=== PATIENT | female | born 1950 | race Caucasian/White ===

== ENCOUNTER 2017-11-06 11:51 | Day surgery (SDC) | payer OTHER, SELFPAY ==
--- NOTE | 2017-11-06 | PATH_ITS ---
[facility] Accession Number: [id number] . 01 Material submitted: . SIGMOID POLYP . 02 Diagnosis: Sigmoid Colon, Polyp, Biopsy: Colonic mucosa with no diagnostic abnormality, consistent with polypoid redundancy. Negative for dysplasia or malignancy. Additional levels were examined. MRV/11/08/2017 . 02 Electronically signed: . Jenae Palma MD, Pathologist NPI- [id number] . 01 Gross description: . Received one formalin-filled container labeled with the patient's name and labeled sigmoid polyp. The specimen consists of an extremely tiny less than 0.1 cm portion of tissue, wrapped and entirely submitted in one cassette. ([id number]) /FRR . 02 Pathologist provided ICD-10: K63.5 . 02 CPT . 088237 Performed at: 01 [facility] [address] [id number] MD Erich Massey MD Phone: [phone] Performed at: 02 [facility] [address] [place], [place] [id number] MD Ermias Bundy MD Phone: [phone]
[2017-11-06 12:24] VITALS: BP 129/72; PULSE 56; RESP 16; TEMP 36.3; O2SAT 100; BMI 23.0
[2017-11-06] MEDS: SODIUM CHLORIDE 0.9% 1,000 ML 42 ML IV (12:32)
[2017-11-06] MEDS: ONDANSETRON 4 MG/2 ML INJ IV (13:48)
[2017-11-06] MEDS: fentaNYL 250 MCG/5 ML INJ IV (14:01)
[2017-11-06] MEDS: MIDAZOLAM 5 MG/5 ML VIAL IV (14:02)
--- NOTE | 2017-11-06 14:07 | PM.OP.ENDO ---
Operative Date/Time/Diagnoses Date of procedure: 11/06/17 Time of procedure: 14:07 Pre-op diagnosis: See indication and findings Post-op diagnosis: same Procedure & Clinicians Study performed: Colonoscopy Same procedure as scheduled: Yes Indications: History of polyps Surgeon: Aria Fitch Procedure Notes Procedure in detail: After informed consent was obtained the patient was placed in the left lateral decubitus position. The video colonoscope was introduced the rectum slowly advanced to the cecum. On slow withdrawal mucosa was carefully examined. Scope was removed patient tolerated procedure well. Preparation was good. Of note is that the sigmoid is very tortuous and floppy. New line Blood loss none Complications plan Sedation Fentanyl 100 mcg Versed 4 mg IV titration Total sedation time 22 min Findings 1. 3 mm polyp in the sigmoid colon Jumbo biopsy removed completely 2. Very tortuous sigmoid colon 3. Otherwise negative colonoscopy to cecum Given her past history of polyps should have follow-up colonoscopy in 5 years. We will send results of her biopsies to her by mail.
[2017-11-06 14:10] VITALS: BP 109/56; PULSE 52; RESP 16; TEMP 37; O2SAT 97
[2017-11-06 14:15] VITALS: BP 114/57; PULSE 53; RESP 12; O2SAT 96
[2017-11-06 14:21] VITALS: BP 111/59; PULSE 56; RESP 14; TEMP 36.6; O2SAT 966
--- NOTE | 2017-11-06 14:24 | SUR.PHASEI ---
STABLE PACU TO OPD.
[2017-11-06 14:35] VITALS: BP 122/55; PULSE 52; RESP 16; TEMP 36.7; O2SAT 99
--- NOTE | 2017-11-06 14:41 | SUR.PHASEII ---
BROUGHT IN, D/C INSTRUCTIONS DISCUSSED, PT READY TO GO, DRESSED AND LEFT IN STABLE CONDITION.
--- NOTE | 2017-12-11 16:36 | PM.HP.1 ---
History of Present Illness Date Patient Seen: 11/06/17 Time Patient Seen: 08:36 Chief complaint: [id number] COLONOSCOPY Narrative: Positive fit test Patient History Medical History Hypercholesterolemia (Acute) Hyperparathyroidism (Acute) Family & Social History Social History: household members spouse Meds Home Medications Medication Instructions Recorded Confirmed Type estradiol 1 mg PO DAILY 11/06/17 11/06/17 History Allergies Allergy/AdvReac Type Severity Reaction Status Date / Time No Known Drug Allergies Allergy Verified 11/06/17 12:10 Exam Vital Signs (past 8 hours): Oxygen Delivery Method Room Air Narrative Exam Narrative: Oropharynx free of lesion Chest clear to auscultation percussion Cardiac exam reveals no S3 or murmur Assessment & Plan Plan: Assessment/Plan Narrative: Positive fit test need for follow-up colonoscopy. Risks, benefits, alternatives have been explained.
== END 2017-11-06 14:41 | disposition home or self-care (01) ==
PROVIDERS: Family Provider Family Medicine; PCP Family Medicine; Visit Provider Internal Medicine Gastroenterology
PROC: 0DJD8ZZ Inspection of Lower Intestinal Tract, Via Natural or Artificial Opening Endoscopic (ICD-10-PCS; CPT 45378; principal; 2017-11-06 13:00)
DX: Z86.010 Personal history of colon polyps (principal); D12.5 Benign neoplasm of sigmoid colon
CPT/HCPCS: 45380; J2250; J2405; J3010

== ENCOUNTER → 2017-12-02 12:58 | Outpatient (CLI) | payer OTHER, SELFPAY ==
--- NOTE | 2017-12-02 | DI.RAD.S_ITS ---
This blank DEXA report has been sent in error by the PACS system. The correct and complete report will be forthcoming in 1-2 days. Thank you for your patience and understanding. Dictated by: Jeancarlos King M.D. on 12/02/2017 at 15:07 Approved by: Jeancarlos King M.D. on 12/02/2017 at 15:07
== END ==
PROVIDERS: Family Provider Family Medicine; PCP Family Medicine; Visit Provider Family Medicine
DX: M85.832 Other specified disorders of bone density and structure, left forearm (principal); Z78.0 Asymptomatic menopausal state; E21.3 Hyperparathyroidism, unspecified; Z90.722 Acquired absence of ovaries, bilateral
CPT/HCPCS: 77080

== ENCOUNTER → 2017-12-27 10:27 | Outpatient (CLI) | payer OTHER, SELFPAY ==
--- NOTE | 2017-12-27 | DI.NM.S_ITS ---
PROCEDURE: NM PARATHYROID SPECT RADIOPHARMACEUTICAL: 26.0 mCi Tc-99m sestamibi IV. INDICATIONS: HYPERPARATHYROIDISM TECHNIQUE: After intravenous administration of Tc-99m sestamibi, anterior planar images of the neck and mediastinum were obtained at approximately 10 minutes and 2-3 hours. SPECT images were acquired after the 10 minute planar images. COMPARISON: None. FINDINGS: On the early images, the thyroid gland is bilobed and has normal size and morphology. There is focal increased activity just below the right thyroid bed. The delayed images show preferential tracer retention below the inferior pole of the right thyroid bed, suggesting a parathyroid adenoma. The SPECT images demonstrate focal increased activity below the inferior pole of the right thyroid lobe. IMPRESSION: Suspected a parathyroid adenoma just below the inferior pole of the right thyroid lobe. Dictated by: Michaela Bardales M.D. on 12/27/2017 at 15:12 Approved by: Michaela Bardales M.D. on 12/27/2017 at 15:16
== END ==
PROVIDERS: Family Provider Family Medicine; PCP Family Medicine; Visit Provider Family Medicine
DX: E21.3 Hyperparathyroidism, unspecified (principal)
CPT/HCPCS: 78071; A9500

== ENCOUNTER → 2018-08-14 07:28 | Outpatient (CLI) | payer OTHER, SELFPAY ==
--- NOTE | 2018-08-14 | DI.MG.S_ITS ---
BILATERAL DIGITAL SCREENING MAMMOGRAM 3D/2D WITH CAD: 08/14/2018 CLINICAL: Routine screening. Comparison is made to exams dated: 07/26/2017 mammogram, 07/06/2016 mammogram, and 04/27/2015 mammogram - [facility]. The tissue of both breasts is heterogeneously dense. This may lower the sensitivity of mammography. Current study was also evaluated with a Computer Aided Detection (CAD) system. No significant masses, calcifications, or other findings are seen in either breast. There has been no significant interval change. IMPRESSION: NEGATIVE There is no mammographic evidence of malignancy. A 1 year screening mammogram is recommended. This exam was interpreted at Station ID: [id number]. NOTE: For mammograms, a report in lay terms will be sent to the patient. Approximately 15% of breast malignancies will not be visualized mammographically. In the management of a palpable breast mass, a negative mammogram must not discourage biopsy of a clinically suspicious lesion. Electronically Signed By: Antonio sepulveda/delmy:08/14/2018 12:37:34 letter sent: Normal Exam ACR BI-RADS Category 1: Negative 3341F
== END ==
PROVIDERS: Family Provider Family Medicine; PCP Family Medicine; Visit Provider Family Medicine
DX: Z12.31 Encounter for screening mammogram for malignant neoplasm of breast (principal)
CPT/HCPCS: 77063; 77067

== ENCOUNTER → 2019-02-11 12:26 | Outpatient (CLI) | payer OTHER, SELFPAY ==
--- NOTE | 2019-02-11 | DI.CT.S_ITS ---
PROCEDURE: CT SINUS SCREEN WO CON INDICATIONS: CHRONIC SINUSITIS TECHNIQUE: Noncontrast 3.0 mm axial images acquired from the frontal sinuses to the mid-sella, with coronal and sagittal reformats. For radiation dose reduction, the following was used: automated exposure control, adjustment of mA and/or kV according to patient size. COMPARISON: None. FINDINGS: Image quality: Excellent. Maxillary Sinuses: No bony remodeling or destruction. Sinuses are clear. Ethmoid Air Cells: No bony remodeling or destruction. Sinuses are clear. Sphenoid Sinuses: No bony remodeling or destruction. Sinuses are clear. Frontal Sinuses: No bony remodeling or destruction. Sinuses are clear. Ostiomeatal Complexes: Ostiomeatal complexes are patent. No Wero cells. Miscellaneous: Visualized intra-orbital contents are normal. No tho bullosa or paradoxical turbinate curvature. There is mild to moderate rightward nasal septal deviation. IMPRESSION: No significant active paranasal sinus disease is seen. Mild to moderate rightward nasal septal deviation is seen. Dictated by: Terrance Franz M.D. on 02/11/2019 at 11:59 Approved by: Terrance Franz M.D. on 02/11/2019 at 12:00
== END ==
PROVIDERS: PCP Internal Medicine; Visit Provider Internal Medicine
DX: J32.9 Chronic sinusitis, unspecified (principal); J34.2 Deviated nasal septum
CPT/HCPCS: 70486

== ENCOUNTER → 2020-05-21 08:11 | Outpatient (CLI) | payer OTHER, SELFPAY ==
--- NOTE | 2020-05-21 08:13 | DI.MG.S_ITS ---
BILATERAL DIGITAL SCREENING MAMMOGRAM 3D/2D WITH CAD: 05/21/2020 CLINICAL: Routine screening. Comparison is made to exams dated: 08/14/2018 mammogram, 07/26/2017 mammogram, and 07/06/2016 mammogram - [facility]. The tissue of both breasts is heterogeneously dense. This may lower the sensitivity of mammography. Current study was also evaluated with a Computer Aided Detection (CAD) system. No significant masses, calcifications, or other findings are seen in either breast. There has been no significant interval change. IMPRESSION: NEGATIVE There is no mammographic evidence of malignancy. A 1 year screening mammogram is recommended. This exam was interpreted at Station ID: [id number]. NOTE: For mammograms, a report in lay terms will be sent to the patient. Approximately 15% of breast malignancies will not be visualized mammographically. In the management of a palpable breast mass, a negative mammogram must not discourage biopsy of a clinically suspicious lesion. Electronically Signed By: Kurt white/delmy:05/23/2020 07:28:44 letter sent: Normal Exam ACR BI-RADS Category 1: Negative 3341F
== END ==
PROVIDERS: PCP Internal Medicine; Referring Provider Internal Medicine; Visit Provider Internal Medicine
DX: Z12.31 Encounter for screening mammogram for malignant neoplasm of breast (principal)
CPT/HCPCS: 77063; 77067

== ENCOUNTER → 2020-09-15 08:47 | Outpatient (CLI) | payer OTHER, SELFPAY ==
--- NOTE | 2020-09-15 | DI.RAD.S_ITS ---
PROCEDURE: XR CERVICAL SPINE 2V OR 3V INDICATIONS: neck pain TECHNIQUE: 3 view(s) of the cervical spine were acquired. COMPARISON: None. FINDINGS: Bones: No fractures or dislocations to the T1 level. The lateral masses of C1 appear intact on the odontoid view. No suspicious bony lesions. Moderate C5-C6 degenerative disc disease. Mild C3-C4 and C4-C5 degenerative disc disease. Soft tissues: No prevertebral soft tissue swelling. IMPRESSION: 1. Multilevel degenerative disc disease. 2. No fracture. No acute osseous lesion. If symptoms and/or clinical suspicion for pathology persists, evaluation with MRI should be considered for further assessment. Dictated by: Mihaela Jones MD, PhD on 09/15/2020 at 17:28 Approved by: Mihaela Jones MD, PhD on 09/15/2020 at 17:28
== END ==
PROVIDERS: PCP Internal Medicine; Referring Provider Physician Assistant Medical; Visit Provider Physician Assistant Medical
DX: M54.2 Cervicalgia (principal)
CPT/HCPCS: 72040

== ENCOUNTER → 2021-08-15 07:23 | Outpatient (CLI) | payer OTHER, SELFPAY ==
--- NOTE | 2021-08-15 07:24 | DI.MG.S_ITS ---
BILATERAL DIGITAL SCREENING MAMMOGRAM 3D/2D WITH CAD: 08/15/2021 CLINICAL: Routine screening. Comparison is made to exams dated: 05/21/2020 mammogram, 08/14/2018 mammogram, and 07/26/2017 mammogram - [facility]. The tissue of both breasts is heterogeneously dense. This may lower the sensitivity of mammography. Current study was also evaluated with a Computer Aided Detection (CAD) system. No significant masses, calcifications, or other findings are seen in either breast. There has been no significant interval change. IMPRESSION: NEGATIVE There is no mammographic evidence of malignancy. A 1 year screening mammogram is recommended. This exam was interpreted at Station ID: [id number]. NOTE: For mammograms, a report in lay terms will be sent to the patient. Approximately 15% of breast malignancies will not be visualized mammographically. In the management of a palpable breast mass, a negative mammogram must not discourage biopsy of a clinically suspicious lesion. Electronically Signed By: Ryan norwood/delmy:08/15/2021 09:02:06 letter sent: Normal Exam ACR BI-RADS Category 1: Negative 3341F
== END ==
PROVIDERS: PCP Internal Medicine; Referring Provider Internal Medicine; Visit Provider Internal Medicine
DX: Z12.31 Encounter for screening mammogram for malignant neoplasm of breast (principal)
CPT/HCPCS: 77063; 77067

== ENCOUNTER → 2021-10-04 10:35 | Outpatient (CLI) | payer OTHER, SELFPAY | PROVIDERS: PCP Physician Assistant; Referring Provider Physician Assistant; Visit Provider Physician Assistant | DX: Z78.0 Asymptomatic menopausal state (principal); M85.852 Other specified disorders of bone density and structure, left thigh; M85.851 Other specified disorders of bone density and structure, right thigh | CPT/HCPCS: 77080 ==

== ENCOUNTER → 2022-10-03 08:35 | Outpatient (CLI) | payer OTHER, SELFPAY ==
--- NOTE | 2022-10-03 | DI.MG.S_ITS ---
BILATERAL DIGITAL DIAGNOSTIC MAMMOGRAM 3D/2D: 10/03/2022 CLINICAL: Right breast pain. Comparison is made to exams dated: 08/15/2021 mammogram, 08/15/2021 mammogram, and 05/21/2020 mammogram - [facility]. Both breasts are heterogeneously dense, which may obscure small masses (category c / 51-75% glandular tissue). No significant masses, calcifications, or other findings are seen in either breast. Patient describes diffused right breast pain. IMPRESSION: NEGATIVE There is no mammographic evidence of malignancy. Exam findings were conveyed to the patient. Patient is advised to monitor for significant change. Clinical follow-up as needed. A 1 year screening mammogram is recommended. Based on the Tyrer Cuzick model (a risk assessment model) the patient's lifetime risk is 7.4% and her 10 year risk is 4.7%. According to the ACR, ACS, and NCCN guidelines, an annual breast MRI exam along with mammogram is recommended if the patient's lifetime risk is 20% or greater. This exam was interpreted at Station ID: [id number]. NOTE: For mammograms, a report in lay terms will be sent to the patient. Approximately 15% of breast malignancies will not be visualized mammographically. In the management of a palpable breast mass, a negative mammogram must not discourage biopsy of a clinically suspicious lesion. Electronically Signed By: Henrry Gamino M.D. [facility] [place]:10/03/2022 09:09:24 letter sent: Normal Exam ACR BI-RADS Category 1: Negative 3341F
== END ==
PROVIDERS: PCP Physician Assistant; Referring Provider Physician Assistant; Visit Provider Physician Assistant
DX: N64.4 Mastodynia (principal)
CPT/HCPCS: 77066; G0279

== ENCOUNTER 2022-11-02 07:48 | Day surgery (SDC) | payer OTHER, SELFPAY ==
[2022-11-02] VITALS (8 sets, daily range): BP systolic 99–143; BP diastolic 40–77; PULSE 51–77; RESP 13–19; TEMP 36–36.8; O2SAT 96–100; BMI 22.4
--- NOTE | 2022-11-02 | DI.RAD.S_ITS ---
PROCEDURE: XR ABDOMEN 1V INDICATIONS: abdominal pain after colonoscopy. TECHNIQUE: One view of the abdomen acquired. COMPARISON: None. FINDINGS: Surgical changes and devices: None. Bowel: Bowel gas pattern is normal. Soft tissues: No suspicious abdominal calcifications. Visualized solid organ contours appear normal in size. Air distention of the colon consistent with recent colonoscopy. There is a metallic artifact in the lower abdomen, likely a zipper Bones: No suspicious bony lesions. IMPRESSION: No evidence of free air or perforation. Dictated by: Jose Araya M.D. on 11/02/2022 at 13:58 Approved by: Jose Araya M.D. on 11/02/2022 at 14:01
[2022-11-02] MEDS: LACTATED RINGERS 1,000 ML 84 ML IV ×2 (08:36→12:13)
--- NOTE | 2022-11-02 10:34 | P.HP_ITS ---
History of Present Illness History of Present Illness Date Patient Seen: 11/02/22 Time Patient Seen: 10:57 Chief complaint: Dx Colonoscopy Narrative: 72-year-old female presents today for screening colonoscopy. Her last colonoscopy was done in [address] Jenkins there was a 3 mm polyp she was recommended a 5 year follow-up because of a history of polyps. She is no family history of colon cancer and she complains of difficulty with evacuating her stool she does not she says it is not constipation. Addition she has some questions about when she is walking she feels like when she walks really quickly some brownish sort of ?slime? comes out of her bottom. She says that it is brown in color but it is not stool and it does not smell terrible is kind of mucousy maybe but it is more brownish in color than yellowish white. She says she really only notices this when she is walking her normal 18 minute miles when she walks with her who is much slower it does not happen. She is not had any children she has had a open hysterectomy in the remote past. She eats a lot of fiber does not take a fiber supplement. [facility] Medical History (Updated 11/02/22 @ 11:[address] MD) Hypercholesterolemia Hyperparathyroidism Social History household members: spouse Smoking Status: Never smoker alcohol intake: current Meds Home Medications and Allergies Home Medications Medication Instructions Recorded Confirmed Type peg 3350-electrolytes 236 240 ml PO Q10M #4,000 mL 10/30/22 11/02/22 Rx gram-22.74 gram-6.74 gram-5.86 gram solution (Golytely) Allergies Allergy/AdvReac Type Severity Reaction Status Date / Time brimonidine Allergy Intermediate ITCHING Verified 11/02/22 08:34 Exam Vital Signs (past 8 hours): - 11/02/22 08:16 Temperature 96.8 F L Pulse Rate 67 Respiratory Rate 16 Blood Pressure 143/71 H Pulse Oximetry 98 Oxygen Delivery Method Room Air Oxygen Delivery Method Room Air Const General: cooperative, healthy appearing and comfortable Nutritional Appearance: thin HENMT Head: normal to inspection Mouth: oral mucosae normal Eyes General: appearance normal, both eyes and all related structures Resp Effort & Inspection: normal respiratory effort and able to speak in complete sentences GI Palpation: soft and No tender Assessment & Plan Assessment and plan (1) History of colon polyps: Status: Acute (2) Colon cancer screening: Status: Acute Assessment & Plan narrative: Presents today for screening colonoscopy I discussed the risks benefits and alternatives including but not limited to perforation of the colon and an incomplete exam she fully understands these risks and would like to proceed. I am wondering if some of her symptoms may have to do with fecal incontinence and pelvic floor issues. I can examine her perirectal area for external hemorrhoids or other lesions that may be contributing I can also evaluate her sphincter tone sort of loosely an unofficially and make a recommendation for pelvic PT if it seems right. Generally even people who eat very healthy diet is not able to achieve a 35 g fiber intake with diet alone and I would recommend a fiber supplement in addition as a 1st step to try amelioration of the symptoms as well.
--- NOTE | 2022-11-02 12:30 | P.OP.COLON_ITS ---
Operative Date/Time/Diagnoses Date of procedure: 11/02/22 Time of procedure: 12:30 Pre-op diagnosis: Colon cancer screening, history of polyps, no family history Post-op diagnosis: same Procedure & Clinicians Study performed: Colonoscopy Same procedure as scheduled: Yes Indications: Colon cancer screening, history of polyps Surgeon: Moon Way Procedure Notes Procedure in detail: Patient was taken to the endoscopy suite and placed in a left lateral decubitus position. A time-out was performed. With the help of anesthesiologist conscious sedation was induced and monitored throughout the case. A digital rectal exam was performed and there were no masses or strictures. There were no external hemorrhoids. The pediatric colonoscope was introduced into the anal canal. The scope was advanced laboriously through an extremely tortuous sigmoid colon. The tortuosity continued into the descending and transverse colon and traversing the colon was extremely difficult. There was pressure required from 2 assistance and the process took approximately 60 minutes. We did reach the cecum and took a photograph of the appendiceal orifice. The prep was good [place] bowel prep score of 2. There were some granular particles and a few s mall solid stool pieces that were able to be suctioned irrigated and looked around. There were a few small diverticula scattered throughout the colon and in the sigmoid colon. No polyps were seen. The total withdrawal time was 15 minutes. The scope was not retroflexed, but with withdrawal no prominent internal hemorrhoids were appreciated. Findings: other findings (Very tortuous colon. Suspected possible adhesive bands that are compressing the sigmoid or pelvic portion of the colon. It almost seemed as though some areas were strictured even although they were not some photographs of some of these portions of the colon were obtained.) Specimen(s): none sent Complications: none Post-procedure Recommendations: Colonoscopy in 10 years Plan for aftercare: Recommend increasing fiber intake and fiber supplementation. Given that you had no polyps today and 5 years ago there were only 1 small polyp I think you can potentially increase her screening interval to 7-10 years.
--- NOTE | 2022-11-02 13:40 | SUR.PHASEII ---
Assumed care of pt from Nica [facility] pt complaining of abdominal pain . Pt to have abdominal X-Ray.
--- NOTE | 2022-11-02 13:48 | SUR.PHASEII ---
pt to X-ray via wheelchair.
== END 2022-11-02 14:54 | disposition home or self-care (01) ==
PROVIDERS: PCP Physician Assistant; Referring Provider Surgery; Visit Provider Surgery
PROC: 0DJD8ZZ Inspection of Lower Intestinal Tract, Via Natural or Artificial Opening Endoscopic (ICD-10-PCS; CPT 45378; principal; 2022-11-02 09:15)
DX: Z12.11 Encounter for screening for malignant neoplasm of colon (principal); Z86.010 Personal history of colon polyps; K57.30 Diverticulosis of large intestine without perforation or abscess without bleeding
CPT/HCPCS: 45378; 74018

== ENCOUNTER → 2023-07-09 10:51 | Outpatient (CLI) | payer OTHER, SELFPAY ==
--- NOTE | 2023-07-09 10:55 | DI.RAD.S_ITS ---
PROCEDURE: XR SHOULDER LT MIN 2V INDICATIONS: SHOULDER PAIN TECHNIQUE: 3 views of the shoulder were acquired. COMPARISON: None. FINDINGS: Bones: Mild glenohumeral and acromioclavicular degenerative changes. No displaced fracture or dislocation. Soft tissues: No suspicious soft tissue calcifications. IMPRESSION: Mild overall degenerative changes. No acute osseous abnormality. If there is high concern for further derangement, consider MRI evaluation. Dictated by: Maxime Cook M.D. on 07/09/2023 at 13:55 Approved by: Maxime Cook M.D. on 07/09/2023 at 13:55
== END ==
LOC: RAD 10:53
PROVIDERS: PCP Physician Assistant; Referring Provider Physician Assistant; Visit Provider Physician Assistant
DX: M25.512 Pain in left shoulder (principal)
CPT/HCPCS: 73030

== ENCOUNTER → 2023-11-22 08:39 | Outpatient (CLI) | payer OTHER, SELFPAY ==
--- NOTE | 2023-11-22 | DI.RAD.S_ITS ---
PROCEDURE: XR DEXA AXIAL SKELETON INDICATIONS: MENOPAUSAL STATUS COMPARISON: [facility], CR, XR DEXA AXIAL SKELETON, 10/04/2021, 10:50. FINDINGS: Lumbar Spine (L3 excluded due to increased density): Bone mineral density 1.068 g/cm2, T score 0.3, previously 0.9. Left Hip: Bone mineral density 0.893 g/cm2, T score -0.4, statistically decreased. Left Femoral Neck: Bone mineral density 0.718 g/cm2, T score -1.3, statistically unchanged. Right Hip: Bone mineral density 0.788 g/cm2, T score -1.3, statistically decreased. Right Femoral Neck: Bone mineral density 0.6 a 5 g/cm2, T score -1.5, statistically unchanged. Fracture Risk Calculation (when applicable): 10-year fracture risk of a major osteoporotic fracture 9.3 % and of a hip fracture 1.4%. (T score greater or equal to -1.0 to: NORMAL) (T score from -1.1 to -2.4: OSTEOPENIA) (T score less than or equal to -2.5: OSTEOPOROSIS) IMPRESSION: Osteopenia. Statistically decreased bone mineral density in the hips. Follow-up guidelines as follows: Osteoporosis: Consider a repeat DEXA and Vertebral Fracture Assessment (VFA) exam in 2 years or sooner if medically necessary, to reassess this patient's status. Osteopenia: Consider a repeat DEXA in 2-3 years to reassess this patient's status, or if there is a new clinical indication. Normal: Consider a repeat DEXA in 5 years or sooner, or if there is a new clinical indication. All treatment decisions require clinical judgment and consideration of individual patient factors, including patient preferences, comorbidities, previous drug use, risk factors not captured in the FRAX model (e.g., frailty, falls, vitamin D deficiency, increased bone turnover, interval significant decline in bone density ) and possible under- or over-estimation of fracture risk by FRAX. In addition, the NOF Guide recommends that FDA-approved medical therapies be considered in postmenopausal women and men age >= 50 years with a: * Hip or vertebral (clinical or morphometric) fracture * T-score of <=-2.5 at the spine or hip * Ten-year fracture probability by FRAX of >= 3% for hip fracture or >=20% for major osteoporotic fracture. People with diagnosed cases of osteoporosis or at high risk for fracture should have regular bone mineral density tests. For patients eligible for Medicare, routine testing is allowed once every 2 years. The testing frequency can be increased to one year for patients who have rapidly progressing disease, those who are receiving or discontinuing medical therapy to restore bone mass, or have additional risk factors. Dictated by: Gerson Mcnair M.D. on 11/22/2023 at 18:35 Approved by: Gerson Mcnair M.D. on 11/22/2023 at 18:36
--- NOTE | 2023-11-22 | DI.MG.S_ITS ---
BILATERAL DIGITAL SCREENING MAMMOGRAM 3D/2D WITH CAD: 11/22/2023 CLINICAL: Routine screening. Comparison is made to exams dated: 10/03/2022 mammogram, 08/15/2021 mammogram, 08/15/2021 mammogram, and 05/21/2020 mammogram - [facility]. Both breasts are heterogeneously dense, which may obscure small masses (category c / 51-75% glandular tissue). Current study was also evaluated with a Computer Aided Detection (CAD) system. No significant masses, calcifications, or other findings are seen in either breast. There has been no significant interval change. IMPRESSION: NEGATIVE There is no mammographic evidence of malignancy. A 1 year screening mammogram is recommended. Based on the Tyrer Cuzick model (a risk assessment model) the patient's lifetime risk is 7.0% and her 10 year risk is 4.8%. According to the ACR, ACS, and NCCN guidelines, an annual breast MRI exam along with mammogram is recommended if the patient's lifetime risk is 20% or greater. This exam was interpreted at Station ID: [id number]. NOTE: For mammograms, a report in lay terms will be sent to the patient. Approximately 15% of breast malignancies will not be visualized mammographically. In the management of a palpable breast mass, a negative mammogram must not discourage biopsy of a clinically suspicious lesion. Electronically Signed By: Ryan norwood/delmy:11/22/2023 13:08:41 letter sent: Normal Exam ACR BI-RADS Category 1: Negative 3341F
== END ==
PROVIDERS: PCP Physician Assistant; Referring Provider Physician Assistant; Visit Provider Physician Assistant
DX: N95.8 Other specified menopausal and perimenopausal disorders (principal); Z12.31 Encounter for screening mammogram for malignant neoplasm of breast; R92.333 Mammographic heterogeneous density, bilateral breasts; M85.89 Other specified disorders of bone density and structure, multiple sites
CPT/HCPCS: 77063; 77067; 77080

== ENCOUNTER → 2025-01-30 10:05 | Outpatient (CLI) | payer OTHER, SELFPAY ==
--- NOTE | 2025-01-30 10:07 | DI.MG.S_ITS ---
MM screening mammo BI: 01/30/2025. BI-RADS: 1 CLINICAL: 74-year old female for bilateral screening mammogram. Tyrer-Cuzick lifetime risk of 4.6%. No personal or first-degree family history of breast cancer. PRIOR EXAMS 11/22/2023, 10/03/2022, 08/15/2021, 05/21/2020. MAMMOGRAPHY TECHNIQUE: 2D and 3D (tomosynthesis) digital mammographic views obtained, with additional images as needed for full coverage. Current study was also evaluated with a Computer Aided Detection (CAD) system. DENSITY C. The breasts are heterogeneously dense, which may obscure small masses. MAMMOGRAPHY FINDINGS Bilateral: No suspicious mass, asymmetry, microcalcification, or other abnormality seen. IMPRESSION: * No evidence of malignancy. RECOMMENDATIONS Bilateral * Annual screening mammography. OVERALL ASSESSMENT CATEGORY BI-RADS-1: Negative. [employer] recommends annual screening mammography beginning at age 40 for women with average risk of breast cancer. ELECTRONICALLY SIGNED: Kurt Gibbons M.D. on 02/01/2025 at 08:16:37 AM PT Interpreting Station ID: [id number]
== END ==
LOC: MAMMO 10:06
PROVIDERS: Referring Provider Nurse Practitioner Family; Visit Provider Physician Assistant
DX: Z12.31 Encounter for screening mammogram for malignant neoplasm of breast (principal); R92.333 Mammographic heterogeneous density, bilateral breasts
CPT/HCPCS: 77063; 77067